=== PATIENT | female | born 1990 | race Two or more races ===

== ENCOUNTER 2017-10-03 00:28 | Emergency (ER) | payer SELFPAY ==
[~2017-10-03] VITALS: Ht 177.8 cm; Wt 77.1 kg
[2017-10-03 01:32] LABS: Basophils # (auto) 0.1 uL; Basophils % (auto) 0.6 % (0.0-2.0); Eosinophils # (auto) 0.2 uL; Eosinophils % (auto) 1.5 % (0.0-7.0); Hemoglobin 14.2 g/dL (12.2-16.2); Lymphocytes % (auto) 21.2 % (10.0-50.0); Mean Corpuscular Hemoglobin 32.6 pg (28.0-32.0); Mean Corpuscular Hgb Conc. 33.9 g/dL (32.0-36.0); Mean Corpuscular Volume 96.3 fL (80.0-100.0); Mean Platelet Volume 7.2 fL (6.9-10.8); Monocytes # (auto) 0.9 uL; Monocytes % (auto) 6.2 % (0.0-12.0); Neutrophils # (auto) 9.8 uL; Neutrophils % (auto) 70.5 % (37.0-80.0); Platelet Count (auto) 255 10^3/uL (140-450); Red Cell Distribution Width 12.8 % (11.8-14.3); White Blood Cell 13.9 10^3/uL (4.4-10.8)
[2017-10-03 01:34] LABS: Urine Bilirubin Negative (Negative); Urine Blood Negative /uL (Negative); Urine Color Yellow (Yellow); Urine Glucose Normal (Normal); Urine Ketone Negative (Negative); Urine Mucus FEW (None Seen); Urine Nitrite Negative (Negative); Urine RBC 1 /hpf (0 - 4); Urine Squamous Epithelial Cell FEW /hpf (<5); Urine Urobilinogen Normal (Negative)
[2017-10-03 01:48] LABS: Albumin 3.9 g/dL (3.4-5.0); Amylase 85 U/L (25-115); Anion Gap 10 (5-15); BUN/Creatinine Ratio 17.7; Blood Urea Nitrogen 14 mg/dL (7-18); Calcium 8.7 mg/dL (8.5-10.1); Carbon Dioxide 22 mmol/L (21-32); Chloride 105 mmol/L (98-107); GFR African American 112 mL/min; GFR Non-African American 93 mL/min; Glucose 91 mg/dL (74-106); Potassium 3.5 mmol/L (3.5-5.1); Sodium 137 mmol/L (136-145)
[2017-10-03 01:59] LABS: Alkaline Phosphatase 80 U/L (45-117); Aspartate Aminotransferase 10 U/L (15-37); Bilirubin, Total 0.5 mg/dL (0.2-1.0); Total Protein 7.7 g/dL (6.4-8.2)
[2017-10-03 06:21] VITALS: BP 95/57
[2017-10-03] MEDS ORDERED: ONDANSETRON ODT 4 MG TAB PO ONE (06:45)
[2017-10-03] MEDS ORDERED: KETOROLAC TROMETH 60MG/2ML VIAL IM ONE (06:45)
== END 2017-10-03 08:35 | disposition home or self-care (01) ==
LOC: ER 00:28
DX: N39.0 Urinary tract infection, site not specified (principal); K80.20 Calculus of gallbladder without cholecystitis without obstruction; Z88.1 Allergy status to other antibiotic agents
CPT/HCPCS: 36415; 76705; 80053; 81001; 81025; 82150; 83690; 84484; 85025; 96372; 99285; J1885; Q0162

== ENCOUNTER 2017-12-16 18:42 | Inpatient (IN) | payer MEDICAID ==
[~2017-12-16] VITALS: Ht 180.3 cm; Wt 72.6 kg
[2017-12-16 19:51] LABS: Basophils # (auto) 0.1 uL; Basophils % (auto) 0.5 % (0.0-2.0); Eosinophils # (auto) 0.2 uL; Eosinophils % (auto) 1.3 % (0.0-7.0); Hematocrit 41.3 % (36.0-46.0); Hemoglobin 13.7 g/dL (12.2-16.2); Lymphocytes # (auto) 2.7 uL; Lymphocytes % (auto) 21.5 % (10.0-50.0); Mean Corpuscular Hemoglobin 32.2 pg (28.0-32.0); Mean Corpuscular Hgb Conc. 33.1 g/dL (32.0-36.0); Mean Corpuscular Volume 97.4 fL (80.0-100.0); Monocytes # (auto) 0.8 uL; Monocytes % (auto) 6.2 % (0.0-12.0); Neutrophils # (auto) 8.9 uL; Neutrophils % (auto) 70.5 % (37.0-80.0); Platelet Count (auto) 355 10^3/uL (140-450); Red Blood Cells 4.24 10^6/uL (4.0-5.20); Red Cell Distribution Width 13.6 % (11.8-14.3); White Blood Cell 12.6 10^3/uL (4.4-10.8)
[2017-12-16 19:53] LABS: Urine Bacteria NONE SEEN /hpf (None Seen); Urine Blood Negative /uL (Negative); Urine Hyaline Cast FEW /lpf (0 - 2); Urine Mucus FEW (None Seen); Urine Specific Gravity 1.026 (1.001-1.035); Urine WBC 5 /hpf (0 - 5)
[2017-12-16 20:04] LABS: Albumin 3.8 g/dL (3.4-5.0); BUN/Creatinine Ratio 10.4; Calcium 8.8 mg/dL (8.5-10.1); Potassium 3.3 mmol/L (3.5-5.1)
[2017-12-16 20:06] LABS: Bilirubin, Total 0.4 mg/dL (0.2-1.0)
[2017-12-16 20:07] LABS: Alcohol, Urine < 3.0 mg/dL (0-5); Amphetamine Screen, Urine NEGATIVE (NEGATIVE); Barbiturate Scree,Urine NEGATIVE (NEGATIVE); Benzodiazephine Screen, Urine NEGATIVE (NEGATIVE); Cannabinoid Screen, Urine NEGATIVE (NEGATIVE); Cocaine Screen, Urine NEGATIVE (NEGATIVE); Opiate Scree,Urine NEGATIVE (NEGATIVE); Phencyclidine Screen, Urine NEGATIVE (NEGATIVE)
[2017-12-16] MEDS ORDERED: SODIUM CHLORIDE 0.9% 1,000 ML IV ONE (23:30)
[2017-12-17] VITALS (8 sets, daily range): BP systolic 99–125; BP diastolic 55–71
[2017-12-17] MEDS ORDERED: POTASSIUM CHL 20 Meq TABLET PO ONE (03:15)
[2017-12-17] MEDS: cefTRIAXone 1GM/10ml IVPUSH 10 ML IV SCH (03:42)
[2017-12-17] MEDS: metroNIDAZOLE 500MG/100ML 100 ML IV SCH ×3 (03:42→21:25)
[2017-12-17 04:01] LABS: Basophils # (auto) 0 uL; Basophils % (auto) 0.3 % (0.0-2.0); Eosinophils # (auto) 0.1 uL; Eosinophils % (auto) 0.9 % (0.0-7.0); Hemoglobin 12.4 g/dL (12.2-16.2); Lymphocytes # (auto) 2.2 uL; Lymphocytes % (auto) 28.1 % (10.0-50.0); Mean Corpuscular Hemoglobin 32.5 pg (28.0-32.0); Mean Corpuscular Hgb Conc. 33.7 g/dL (32.0-36.0); Mean Corpuscular Volume 96.4 fL (80.0-100.0); Monocytes # (auto) 0.8 uL; Monocytes % (auto) 9.9 % (0.0-12.0); Neutrophils # (auto) 4.6 uL; Neutrophils % (auto) 60.8 % (37.0-80.0); Platelet Count (auto) 288 10^3/uL (140-450); Red Blood Cells 3.83 10^6/uL (4.0-5.20); Red Cell Distribution Width 13.8 % (11.8-14.3); White Blood Cell 7.7 10^3/uL (4.4-10.8)
[2017-12-17 04:17] LABS: BUN/Creatinine Ratio 12.5; Calcium 8.1 mg/dL (8.5-10.1); Potassium 3.3 mmol/L (3.5-5.1)
[2017-12-17] MEDS: ONDANSETRON HCL 4 MG/2 ML VIAL IV PRN ×2 (04:29→18:22)
[2017-12-17] MEDS ORDERED: IBUP200C14 PO (04:50)
[2017-12-17 10:52] LABS: Prothrombin Time 10.9 sec (9.37-12.3)
[2017-12-17] MEDS ORDERED: fentaNYL CITRATE 100 MCG/2 ML VL ONE (12:28)
[2017-12-17] MEDS ORDERED: MIDAZOLAM HCL 1MG/1ML-2 ML VIAL ONE (12:28)
[2017-12-17] MEDS ORDERED: MEPERIDINE HCL (50 MG/ML) 1 ML VIAL ONE (12:29)
[2017-12-17] MEDS ORDERED: NEOSTIGMINE 1 MG/ML INJ (10mg/10ML VIAL) IV ONE (12:40)
[2017-12-17] MEDS ORDERED: GLYCOPYRROLATE 0.2 MG/ML 1ML VIAL IV ONE (12:40)
[2017-12-17] MEDS ORDERED: DEXAMETHASONE SOD PHOS 10MG/1ML VIAL INJ ONE (13:01)
[2017-12-17] MEDS ORDERED: PROPOFOL 10 MG/ML 20 ML IV ONE (13:01)
[2017-12-17] MEDS ORDERED: METOCLOPRAMIDE HCL 5MG/ml INJ 2ml VIAL ONE (13:02)
[2017-12-17] MEDS ORDERED: ROCURONIUM 10MG/ML 10ML VIAL IV ONE (13:02)
[2017-12-17] MEDS ORDERED: KETOROLAC TROMETH 30 MG/ML 1ML VIAL ONE (13:14)
[2017-12-17] MEDS ORDERED: ePHEDrine SULFATE 50 MG/ML AMP IV PRN (13:15)
[2017-12-17] MEDS ORDERED: HYDROmorphone HCL 2 MG/ML VL IV PRN (13:15)
[2017-12-17] MEDS ORDERED: MIDAZOLAM HCL 1MG/1ML-2 ML VIAL IV PRN (13:15)
[2017-12-17] MEDS ORDERED: MORPHINE SULFATE 4 MG/ML SYR/VIAL IV PRN (13:15)
[2017-12-17] MEDS ORDERED: LABETALOL HCL 5 MG/ML 4ML SYRINGE IV PRN (13:15)
[2017-12-17] MEDS ORDERED: ONDANSETRON HCL 4 MG/2 ML VIAL IV ONE (13:15)
[2017-12-17] MEDS ORDERED: KETOROLAC TROMETH 30 MG/ML 1ML VIAL IV ONE (13:15)
[2017-12-17] MEDS ORDERED: MORPHINE SULFATE 4 MG/ML SYR/VIAL IV ONE (14:00)
[2017-12-17] MEDS: HYDROcodone-ACET 5/325MG TAB PO PRN (20:04)
[2017-12-18] MEDS: HYDROcodone-ACET 5/325MG TAB PO PRN ×4 (01:50→19:07)
[2017-12-18 05:33] VITALS: BP 102/73
[2017-12-18] MEDS: metroNIDAZOLE 500MG/100ML 100 ML IV SCH ×3 (06:02→21:51)
[2017-12-18 08:41] VITALS: BP 114/70
[2017-12-18] MEDS: ONDANSETRON HCL 4 MG/2 ML VIAL IV PRN (09:16)
[2017-12-18] MEDS: cefTRIAXone 1GM/10ml IVPUSH 10 ML IV SCH (09:17)
[2017-12-18] MEDS: ACETAMINOPHEN 500 MG TAB PO PRN ×2 (09:18→22:11)
[2017-12-18 11:54] VITALS: BP 112/68
[2017-12-18] MEDS ORDERED: MORPHINE SULFATE 4 MG/ML SYR/VIAL IV PRN (13:15)
[2017-12-18 16:42] VITALS: BP 101/59
[2017-12-18 20:00] VITALS: BP 101/59
[2017-12-19] VITALS (13 sets, daily range): BP systolic 99–109; BP diastolic 42–90
[2017-12-19] MEDS: ONDANSETRON HCL 4 MG/2 ML VIAL IV PRN ×2 (04:59→21:16)
[2017-12-19] MEDS: metroNIDAZOLE 500MG/100ML 100 ML IV SCH ×3 (05:38→21:37)
[2017-12-19 07:04] LABS: Basophils # (auto) 0 uL; Basophils % (auto) 0.3 % (0.0-2.0); Eosinophils # (auto) 0 uL; Eosinophils % (auto) 0.6 % (0.0-7.0); Hematocrit 22.1 % (36.0-46.0); Hemoglobin 7.3 g/dL (12.2-16.2); Lymphocytes % (auto) 26.3 % (10.0-50.0); Mean Corpuscular Hemoglobin 32.4 pg (28.0-32.0); Mean Corpuscular Volume 98.1 fL (80.0-100.0); Monocytes # (auto) 0.7 uL; Monocytes % (auto) 9.5 % (0.0-12.0); Neutrophils # (auto) 4.9 uL; Neutrophils % (auto) 63.3 % (37.0-80.0); Nucleated Red Blood Cells % 0.1 %; Platelet Count (auto) 241 10^3/uL (140-450); Red Blood Cells 2.25 10^6/uL (4.0-5.20); White Blood Cell 7.7 10^3/uL (4.4-10.8)
[2017-12-19 07:37] LABS: Albumin 2.6 g/dL (3.4-5.0); Bilirubin, Total 0.7 mg/dL (0.2-1.0); Calcium 7.8 mg/dL (8.5-10.1); Potassium 3.8 mmol/L (3.5-5.1); Total Protein 5.5 g/dL (6.4-8.2)
[2017-12-19] MEDS: cefTRIAXone 1GM/10ml IVPUSH 10 ML IV SCH (08:37)
[2017-12-19] MEDS: HYDROcodone-ACET 5/325MG TAB PO PRN ×3 (08:37→18:31)
[2017-12-19] MEDS: SODIUM CHLORIDE 0.9% 1,000 ML IV SCH ×2 (12:00→21:37)
[2017-12-19] MEDS ORDERED: IOHEXOL 350 MG/ML 100ML IJ ONE (12:12)
[2017-12-19 13:29] LABS: INR 0.98 (0.9-1.15); Partial Thromboplastin Time 23.1 sec (22.64-33.71); Prothrombin Time 10.7 sec (9.37-12.3)
[2017-12-19] MEDS: ACETAMINOPHEN 500 MG TAB PO PRN (21:49)
[2017-12-20 05:00] VITALS: BP 109/72
[2017-12-20] MEDS: metroNIDAZOLE 500MG/100ML 100 ML IV SCH ×3 (05:07→22:04)
[2017-12-20 07:33] LABS: Basophils # (auto) 0 uL; Basophils % (auto) 0.4 % (0.0-2.0); Eosinophils # (auto) 0.2 uL; Eosinophils % (auto) 2.4 % (0.0-7.0); Hematocrit 28.2 % (36.0-46.0); Hemoglobin 9.6 g/dL (12.2-16.2); Lymphocytes % (auto) 24.4 % (10.0-50.0); Mean Corpuscular Hemoglobin 32.4 pg (28.0-32.0); Monocytes # (auto) 0.8 uL; Monocytes % (auto) 9.3 % (0.0-12.0); Neutrophils # (auto) 5.3 uL; Neutrophils % (auto) 63.5 % (37.0-80.0); Platelet Count (auto) 245 10^3/uL (140-450); Red Blood Cells 2.97 10^6/uL (4.0-5.20); Red Cell Distribution Width 15.4 % (11.8-14.3); White Blood Cell 8.3 10^3/uL (4.4-10.8)
[2017-12-20 07:53] LABS: Albumin 2.7 g/dL (3.4-5.0); BUN/Creatinine Ratio 9.7; Bilirubin, Total 0.8 mg/dL (0.2-1.0); Calcium 8.1 mg/dL (8.5-10.1); Potassium 3.8 mmol/L (3.5-5.1); Total Protein 5.8 g/dL (6.4-8.2)
[2017-12-20 09:00] VITALS: BP 111/75
[2017-12-20] MEDS: cefTRIAXone 1GM/10ml IVPUSH 10 ML IV SCH (10:31)
[2017-12-20] MEDS: SODIUM CHLORIDE 0.9% 1,000 ML IV SCH ×2 (10:31→17:11)
[2017-12-20] MEDS: HYDROcodone-ACET 5/325MG TAB PO PRN ×3 (10:32→22:08)
[2017-12-20] MEDS: ONDANSETRON HCL 4 MG/2 ML VIAL IV PRN (11:55)
[2017-12-20] MEDS: ACETAMINOPHEN 500 MG TAB PO PRN (12:39)
[2017-12-20 13:00] VITALS: BP 128/62
[2017-12-20] MEDS: PROMETHAZINE HCL 25 MG/ML 1ML IV PRN ×3 (13:57→22:08)
[2017-12-20 16:41] VITALS: BP 112/76
[2017-12-20 18:17] LABS: Hematocrit 29.8 % (36.0-46.0); Hemoglobin 10.1 g/dL (12.2-16.2)
[2017-12-20 22:00] VITALS: BP 119/78
[2017-12-21] MEDS: SODIUM CHLORIDE 0.9% 1,000 ML IV SCH ×2 (04:00→14:18)
[2017-12-21 05:49] VITALS: BP 124/57
[2017-12-21 06:00] VITALS: BP 111/66
[2017-12-21] MEDS: PROMETHAZINE HCL 25 MG/ML 1ML IV PRN (06:11)
[2017-12-21] MEDS: HYDROcodone-ACET 5/325MG TAB PO PRN ×2 (06:11→16:54)
[2017-12-21] MEDS: metroNIDAZOLE 500MG/100ML 100 ML IV SCH ×3 (06:12→21:56)
[2017-12-21 06:29] LABS: Basophils # (auto) 0 uL; Basophils % (auto) 0.5 % (0.0-2.0); Eosinophils # (auto) 0.3 uL; Eosinophils % (auto) 3.8 % (0.0-7.0); Hematocrit 29.6 % (36.0-46.0); Hemoglobin 9.9 g/dL (12.2-16.2); Lymphocytes # (auto) 1.7 uL; Lymphocytes % (auto) 21.2 % (10.0-50.0); Mean Corpuscular Hemoglobin 32.2 pg (28.0-32.0); Mean Corpuscular Hgb Conc. 33.6 g/dL (32.0-36.0); Mean Corpuscular Volume 96.1 fL (80.0-100.0); Monocytes # (auto) 0.9 uL; Monocytes % (auto) 10.7 % (0.0-12.0); Neutrophils # (auto) 5.2 uL; Neutrophils % (auto) 63.8 % (37.0-80.0); Nucleated Red Blood Cells % 0.1 %; Platelet Count (auto) 274 10^3/uL (140-450); Red Blood Cells 3.08 10^6/uL (4.0-5.20); Red Cell Distribution Width 15.5 % (11.8-14.3); White Blood Cell 8.1 10^3/uL (4.4-10.8)
[2017-12-21 06:46] LABS: Calcium 8.2 mg/dL (8.5-10.1); Potassium 3.9 mmol/L (3.5-5.1)
[2017-12-21 06:47] LABS: BUN/Creatinine Ratio 6.5
[2017-12-21 09:00] VITALS: BP 114/70
[2017-12-21] MEDS: cefTRIAXone 1GM/10ml IVPUSH 10 ML IV SCH (10:07)
[2017-12-21 13:00] VITALS: BP 104/64
[2017-12-21 17:16] VITALS: BP 125/53
[2017-12-21 20:14] LABS: Hemoglobin 10.4 g/dL (12.2-16.2)
[2017-12-21 22:00] VITALS: BP 98/58
[2017-12-22] MEDS: SODIUM CHLORIDE 0.9% 1,000 ML IV SCH ×2 (01:09→09:28)
[2017-12-22] MEDS: PROMETHAZINE HCL 25 MG/ML 1ML IV PRN ×2 (01:09→20:59)
[2017-12-22] MEDS: HYDROcodone-ACET 5/325MG TAB PO PRN ×4 (01:10→20:59)
[2017-12-22] MEDS: metroNIDAZOLE 500MG/100ML 100 ML IV SCH ×3 (05:42→20:59)
[2017-12-22 06:00] VITALS: BP 109/69
[2017-12-22 06:25] LABS: Basophils # (auto) 0 uL; Basophils % (auto) 0.3 % (0.0-2.0); Eosinophils # (auto) 0.3 uL; Eosinophils % (auto) 2.2 % (0.0-7.0); Lymphocytes # (auto) 1.7 uL; Lymphocytes % (auto) 12.7 % (10.0-50.0); Monocytes # (auto) 0.9 uL; Neutrophils # (auto) 10.1 uL; Neutrophils % (auto) 77.8 % (37.0-80.0); Red Blood Cells 3.23 10^6/uL (4.0-5.20)
[2017-12-22 06:26] LABS: Hematocrit 31.1 % (36.0-46.0); Hemoglobin 10.3 g/dL (12.2-16.2); Mean Corpuscular Hemoglobin 31.8 pg (28.0-32.0); Mean Corpuscular Hgb Conc. 33.1 g/dL (32.0-36.0); Mean Corpuscular Volume 96.4 fL (80.0-100.0); Platelet Count (auto) 302 10^3/uL (140-450); Red Cell Distribution Width 15.4 % (11.8-14.3)
[2017-12-22 06:39] LABS: BUN/Creatinine Ratio 11.7; Calcium 8.5 mg/dL (8.5-10.1); Potassium 3.7 mmol/L (3.5-5.1)
[2017-12-22 09:02] VITALS: BP 126/62
[2017-12-22] MEDS: cefTRIAXone 1GM/10ml IVPUSH 10 ML IV SCH (09:28)
[2017-12-22 13:51] VITALS: BP 110/68
[2017-12-22 18:01] VITALS: BP 108/68
[2017-12-22 22:00] VITALS: BP 104/64
[2017-12-23] MEDS: SODIUM CHLORIDE 0.9% 1,000 ML IV SCH ×3 (00:22→15:30)
[2017-12-23 05:00] VITALS: BP 108/65
[2017-12-23 05:14] LABS: Basophils # (auto) 0.1 uL; Basophils % (auto) 0.5 % (0.0-2.0); Eosinophils # (auto) 0.3 uL; Eosinophils % (auto) 2.5 % (0.0-7.0); Hematocrit 31.2 % (36.0-46.0); Hemoglobin 10.5 g/dL (12.2-16.2); Lymphocytes # (auto) 1.4 uL; Lymphocytes % (auto) 13.9 % (10.0-50.0); Mean Corpuscular Hemoglobin 32.3 pg (28.0-32.0); Mean Corpuscular Hgb Conc. 33.5 g/dL (32.0-36.0); Mean Corpuscular Volume 96.4 fL (80.0-100.0); Monocytes # (auto) 0.9 uL; Monocytes % (auto) 8.7 % (0.0-12.0); Neutrophils # (auto) 7.6 uL; Neutrophils % (auto) 74.4 % (37.0-80.0); Nucleated Red Blood Cells % 0.1 %; Platelet Count (auto) 316 10^3/uL (140-450); Red Blood Cells 3.24 10^6/uL (4.0-5.20); Red Cell Distribution Width 15.5 % (11.8-14.3); White Blood Cell 10.2 10^3/uL (4.4-10.8)
[2017-12-23] MEDS: metroNIDAZOLE 500MG/100ML 100 ML IV SCH ×3 (05:22→21:41)
[2017-12-23] MEDS: HYDROcodone-ACET 5/325MG TAB PO PRN (05:22)
[2017-12-23 05:33] LABS: Albumin 2.9 g/dL (3.4-5.0); Calcium 8.1 mg/dL (8.5-10.1); Potassium 3.9 mmol/L (3.5-5.1)
[2017-12-23 05:36] LABS: BUN/Creatinine Ratio 10.3
[2017-12-23 05:41] LABS: Bilirubin, Total 1.1 mg/dL (0.2-1.0); Total Protein 6.5 g/dL (6.4-8.2)
[2017-12-23 08:38] VITALS: BP 108/66
[2017-12-23] MEDS: cefTRIAXone 1GM/10ml IVPUSH 10 ML IV SCH (09:00)
[2017-12-23] MEDS ORDERED: IOHEXOL 300 MG/ML 100ML BOTTLE IJ ONE (09:41)
[2017-12-23] MEDS ORDERED: MIDAZOLAM HCL 1MG/1ML-2 ML VIAL ONE (09:58)
[2017-12-23] MEDS ORDERED: PROPOFOL 10 MG/ML 20 ML IV ONE (09:58)
[2017-12-23] MEDS ORDERED: fentaNYL CITRATE 100 MCG/2 ML VL ONE ×2 (09:58→10:39)
[2017-12-23] MEDS ORDERED: fentaNYL CITRATE 100 MCG/2 ML VL IV ONE (11:00)
[2017-12-23] MEDS ORDERED: ePHEDrine SULFATE 50 MG/ML AMP IV PRN (11:00)
[2017-12-23] MEDS ORDERED: hydrALAZINE HCL 20 MG/ML VL IV PRN (11:00)
[2017-12-23] MEDS ORDERED: ONDANSETRON HCL 4 MG/2 ML VIAL IV ONE (11:00)
[2017-12-23 15:17] LABS: INR 0.91 (0.9-1.15); Partial Thromboplastin Time 25.9 sec (22.64-33.71); Prothrombin Time 9.9 sec (9.37-12.3)
[2017-12-23 16:32] VITALS: BP 99/61
[2017-12-23 22:00] VITALS: BP 91/55
[2017-12-23] MEDS: ACETAMINOPHEN 500 MG TAB PO PRN (22:04)
[2017-12-24] MEDS: SODIUM CHLORIDE 0.9% 1,000 ML IV SCH (02:00)
[2017-12-24] MEDS: metroNIDAZOLE 500MG/100ML 100 ML IV SCH (05:24)
[2017-12-24 05:30] VITALS: BP 93/56
[2017-12-24 05:57] LABS: Basophils # (auto) 0.1 uL; Basophils % (auto) 0.5 % (0.0-2.0); Eosinophils # (auto) 0.2 uL; Eosinophils % (auto) 2.2 % (0.0-7.0); Hematocrit 29.7 % (36.0-46.0); Lymphocytes # (auto) 1.8 uL; Lymphocytes % (auto) 16.8 % (10.0-50.0); Mean Corpuscular Hemoglobin 32.9 pg (28.0-32.0); Mean Corpuscular Hgb Conc. 33.8 g/dL (32.0-36.0); Mean Corpuscular Volume 97.4 fL (80.0-100.0); Monocytes % (auto) 9.7 % (0.0-12.0); Neutrophils # (auto) 7.4 uL; Neutrophils % (auto) 70.8 % (37.0-80.0); Platelet Count (auto) 335 10^3/uL (140-450); Red Blood Cells 3.05 10^6/uL (4.0-5.20); Red Cell Distribution Width 15.8 % (11.8-14.3); White Blood Cell 10.4 10^3/uL (4.4-10.8)
[2017-12-24 06:21] LABS: Albumin 2.7 g/dL (3.4-5.0); BUN/Creatinine Ratio 7.9; Bilirubin, Total 1.1 mg/dL (0.2-1.0); Calcium 8.3 mg/dL (8.5-10.1); Potassium 3.6 mmol/L (3.5-5.1); Total Protein 6.3 g/dL (6.4-8.2)
[2017-12-24 07:25] VITALS: BP 102/61
[2017-12-24] MEDS: cefTRIAXone 1GM/10ml IVPUSH 10 ML IV SCH (08:56)
[2017-12-24] MEDS: HYDROcodone-ACET 5/325MG TAB PO PRN ×2 (10:16→21:39)
[2017-12-24 11:35] VITALS: BP 99/53
[2017-12-24] MEDS: metroNIDAZOLE 500 MG TAB PO SCH ×2 (15:29→21:38)
[2017-12-24 16:32] VITALS: BP 103/66
[2017-12-24 22:00] VITALS: BP 91/50
[2017-12-25] MEDS ORDERED: TEMAZEPAM 15 MG CAP PO ONE (01:15)
[2017-12-25 05:28] LABS: Basophils # (auto) 0 uL; Basophils % (auto) 0.5 % (0.0-2.0); Eosinophils # (auto) 0.2 uL; Eosinophils % (auto) 2.8 % (0.0-7.0); Hematocrit 30.1 % (36.0-46.0); Hemoglobin 10.1 g/dL (12.2-16.2); Mean Corpuscular Hemoglobin 33.2 pg (28.0-32.0); Mean Corpuscular Hgb Conc. 33.7 g/dL (32.0-36.0); Mean Corpuscular Volume 98.3 fL (80.0-100.0); Monocytes # (auto) 0.9 uL; Monocytes % (auto) 10.3 % (0.0-12.0); Neutrophils # (auto) 5.8 uL; Neutrophils % (auto) 64.4 % (37.0-80.0); Platelet Count (auto) 370 10^3/uL (140-450); Red Blood Cells 3.06 10^6/uL (4.0-5.20); Red Cell Distribution Width 16.4 % (11.8-14.3)
[2017-12-25 05:30] VITALS: BP 99/57
[2017-12-25 05:56] LABS: Albumin 2.8 g/dL (3.4-5.0); BUN/Creatinine Ratio 7.5; Bilirubin, Total 1.1 mg/dL (0.2-1.0); Calcium 8.3 mg/dL (8.5-10.1); Potassium 3.5 mmol/L (3.5-5.1); Total Protein 6.8 g/dL (6.4-8.2)
[2017-12-25] MEDS: metroNIDAZOLE 500 MG TAB PO SCH ×2 (06:12→13:34)
[2017-12-25] MEDS: HYDROcodone-ACET 5/325MG TAB PO PRN ×2 (06:25→13:07)
[2017-12-25 09:00] VITALS: BP 82/46
[2017-12-25] MEDS: cefTRIAXone 1GM/10ml IVPUSH 10 ML IV SCH (09:23)
[2017-12-25 13:00] VITALS: BP 88/51
[2017-12-25 17:00] VITALS: BP 115/65
== END 2017-12-25 16:00 | disposition home or self-care (01) | DRG 263 ==
LOC: ER 18:42 → OVERFLOW 18:43 → WEST WING 12-17 04:00
PROVIDERS: ADMIT Nurse Practitioner Family; ATTEND Internal Medicine
PROC: 0FT44ZZ Resection of Gallbladder, Percutaneous Endoscopic Approach (ICD-10-PCS; principal; 2017-12-17 10:00)
PROC: 30233N1 Transfusion of Nonautologous Red Blood Cells into Peripheral Vein, Percutaneous Approach (ICD-10-PCS; 2017-12-19)
PROC: 0FC98ZZ Extirpation of Matter from Common Bile Duct, Via Natural or Artificial Opening Endoscopic (ICD-10-PCS; 2017-12-23)
PROC: 0F798ZZ Dilation of Common Bile Duct, Via Natural or Artificial Opening Endoscopic (ICD-10-PCS; 2017-12-23)
DX: K80.60 Calculus of gallbladder and bile duct with cholecystitis, unspecified, without obstruction (principal); R71.0 Precipitous drop in hematocrit; S36.12 Injury of gallbladder; D64.9 Anemia, unspecified; D72.829 Elevated white blood cell count, unspecified; S30.1XXA Contusion of abdominal wall, initial encounter; Z88.1 Allergy status to other antibiotic agents; Z90.49 Acquired absence of other specified parts of digestive tract; Z88.8 Allergy status to other drugs, medicaments and biological substances; K91.86 Retained cholelithiasis following cholecystectomy
CPT/HCPCS: 36415; 74018; 74170; 74176; 76000; 76705; 80048; 80053; 80307; 81001; 81025; 82150; 82247; 83690; 84702; 85014; 85018; 85025; 85610; 85730; 86850; 86900; 86901; 86920; 96361; 96374; J1100; J1885; J2250; J2405; J2704; J3490

== ENCOUNTER 2021-02-14 10:48 | Emergency (ER) | payer MEDICAID ==
[~2021-02-14] VITALS: Ht 180.3 cm; Wt 68.0 kg
[~2021-02-14 10:48] MED LIST: IBUP200C14 PO
[2021-02-14 10:51] VITALS: BP 131/91
[2021-02-14] MEDS ORDERED: LIDOCAINE 1% HCL (LOCAL ANESTH.) INJ 20ML MDV IJ ONE (12:00)
== END 2021-02-14 13:35 | disposition home or self-care (01) ==
LOC: ER 10:48
DX: S61.412A Laceration without foreign body of left hand, initial encounter (principal); Z88.1 Allergy status to other antibiotic agents; W26.0XXA Contact with knife, initial encounter; Y93.89 Activity, other specified; Y92.89 Other specified places as the place of occurrence of the external cause; Y99.8 Other external cause status
CPT/HCPCS: 12001; 99282; J2001